=== PATIENT | female | born 1965 | race Caucasian/White ===

== ENCOUNTER 2016-05-29 22:07 | Emergency (ER) ==
[2016-05-29 22:26] VITALS: BMI 20.5
[2016-05-29] MEDS ORDERED: PHENERGAN 25 MG/ML VIAL IM STA (22:43)
[2016-05-29] MEDS ORDERED: STADOL IM STA (22:43)
[2016-05-29 23:43] VITALS: BP 115/74; TEMP 98
--- NOTE | 2016-05-29 23:53 | ED.PDOC ---
General ED Provider: Dr. IGNACIO NIETO Chief Complaint: Headache Stated Complaint: Left sided Headache Time Seen by Physician: 22:15 Mode of Arrival: Walk-In Information Source: Patient Exam Limitations: No limitations Primary Care Provider: DINAH TORO Nursing and Triage Documentation Reviewed and Agree: Yes Neurological Complaint Exam - Headache Complaint/Exam Onset: Sudden Duration: constant Symptoms Are: Still present Timing: Constant Worst Headache Ever: No Initial Severity: Severe Current Severity: Severe Location: Left, Frontal, Temporal, Parietal Character: Reports: Typical headache, Migraine Alleviating: Reports: None Associated Signs and Symptoms: Reports: Nausea. Denies: Dizziness, Seizure, Vomiting, Sinus pressure, Fever, Neck pain, Neck stiffness, Decreased LOC, Visual changes Related History: Reports: Similar episode Related Surgical History: Reports: None SAH Risk Factors: Reports: None Meningitis Risk Factors: Reports: None SDH Risk Factors: Reports: None Temporal Arteritis Risk Factors: Reports: None Normal Head CT Within Last 12 Months: Yes Fundoscopic Exam: Present: Normal Findings Papilledema Present: No Temporal Artery Tenderness: Present: None Sinus Tenderness: Present: None TMJ Tenderness: Present: None Focal Weakness: Present: None Focal Sensory Loss: Present: None Gait: Normal Nystagmus Present: No Gag Reflex Present: No [id number]: Normal Findings Romberg Test Positive: No Babinski Sign: Negative Right, Negative Left Head Picture: 1 - headache Differential Diagnoses: Meningitis Review of Systems - Review Of Systems Constitutional: Reports: Loss of appetite Eyes: Reports: Photophobia Ears, Nose, Mouth, Throat: Reports: No symptoms Respiratory: Reports: No symptoms Cardiac: Reports: No symptoms GI: Reports: No symptoms : Reports: No symptoms Musculoskeletal: Reports: No symptoms Skin: Reports: No symptoms Neurological: Reports: Anxiety, Headache Endocrine: Reports: No symptoms Hematologic/Lymphatic: Reports: No symptoms All Other Systems: Reviewed and Negative Past Medical History - Past Medical History Previously Healthy: Yes Endocrine: Reports: None Cardiovascular: Reports: None Respiratory: Reports: None Hematological: Reports: None Gastrointestinal: Reports: None Genitourinary: Reports: None Neuro/Psych: Reports: None, Migraine Musculoskeletal: Reports: None Cancer: Reports: None Last Menstrual Period: 7-8 years ago. uterine ablation - Surgical History General Surgical History: Reports: None - Family History Family History: Reports: None - Social History Smoking Status: Never smoker Hx Substance Use: No Alcohol Screening: Occasionally - Immunizations Tetanus Shot up to Date: Yes Physical Exam - Physical Exam Appearance: Ill-appearing, Well-nourished Pain Distress: Severe Eyes: JOSE JUAN, EOMI, Conjunctiva clear ENT: Ears normal, Nose normal, Oropharynx normal Neck: Supple Respiratory: Airway patent, Breath sounds clear, Breath sounds equal, Respirations nonlabored Cardiovascular: RRR, Pulses normal, No rub, No murmur GI/: Soft, Nontender, No masses, Bowel sounds normal, No Organomegaly Musculoskeletal: Normal strength, ROM intact, No edema, No calf tenderness Skin: Warm, Dry, Normal color Neurological: Sensation intact, Motor intact, Reflexes intact, Cranial nerves intact, Alert, Oriented Psychiatric: Affect appropriate, Anxious Re-Evaluation - Re-Evaluation Time of Re-Evaluation: 23:52 Status: Improved Pain Level: 2 Appearance: NAD Critical Care Note - Critical Care Note Total Time (mins): 0 Course - Course Orders, Labs, Meds: Orders Category Date Time Status Butorphanol Tartrate [Stadol] MEDS 05/29/16 22:43 Discontinued 2 mg IM ONCE STA Promethazine HCl [Phenergan 25 mg/ml Vial] MEDS 05/29/16 22:43 Discontinued 25 mg IM ONCE STA Medications Discontinued Medications Generic Name Dose Route Start Last Admin Trade Name Freq PRN Reason Stop Dose Admin Butorphanol Tartrate 2 mg 05/29/16 22:43 05/29/16 23:00 Stadol IM 05/29/16 22:44 2 mg ONCE STA Administration Promethazine HCl 25 mg 05/29/16 22:43 05/29/16 23:00 Phenergan 25 Mg/Ml Vial IM 05/29/16 22:44 25 mg ONCE STA Administration Vital Signs: Temp Pulse Resp BP Pulse Ox 05/29/16 23:42 98 F 75 18 115/74 97 05/29/16 22:08 98.4 F 83 18 131/81 100 Departure - Departure Time of Disposition: 23:52 Disposition: HOME SELF-CARE Discharge Problem: Headache, Migraine syndrome Instructions: Migraine Headache (ED) Condition: Good Pt referred to PMD for follow-up: Yes Additional Instructions: Get your medications refilled. Follow up with PCP in 1-3 days Rest Push fluids. Allergies/Adverse Reactions: Allergies Penicillins Adverse Reaction (Verified 05/29/16 22:21) Sulfa (Sulfonamide Antibiotics) Adverse Reaction (Verified 05/29/16 22:21) Home Medications: Ambulatory Orders Etodolac [Lodine] 400 mg PO BID 06/02/13 Hydroxychloroquine Sulfate [Plaquenil] 200 mg PO BID 06/02/13 Multivitamin 1 cap PO DAILY 06/02/13 Promethazine HCl [Phenergan Tab] 25 mg PO DAILY PRN 06/02/13 Topiramate [Topamax] 250 mg PO BID 06/02/13 Trazodone HCl 100 mg PO BEDTIME 06/02/13 Pilocarpine HCl [Salagen] 10 mg PO BID 03/25/14 Alprazolam [Xanax Xr] 1 mg PO BID 06/26/14 Butalb/Acetaminophen/Caffeine [Fioricet] 1 each PO TID PRN #20 tablet 12/05/15 Clomipramine HCl [Anafranil] 100 mg PO BEDTIME 05/29/16 Onabotulinumtoxina [Botox] 100 unit IJ 05/29/16 Disposition Discussed With: Patient, Family
== END 2016-05-29 23:55 | disposition home or self-care (01) ==
LOC: ED 22:07
DX: G43.909 Migraine, unspecified, not intractable, without status migrainosus (principal)
CPT/HCPCS: 96372; 99283

== ENCOUNTER 2016-06-24 15:27 | Outpatient (CLI) | payer OTHER ==
[2016-06-24 15:51] LABS: HEMATOCRIT 36.7 % (37.0-47.0); HEMOGLOBIN 12.6 g/dl (12.0-16.0); MEAN CORPUSCULAR HEMOGLOBIN 31.4 pg (27.0-31.0); MEAN CORPUSCULAR HGB CONC 34.3 (31.8-35.4); MEAN CORPUSCULAR VOLUME 91.5 fl (81.0-99.0); PLATELET COUNT 258 10^3/uL (140-440); RED BLOOD COUNT 4.01 10^6/ul (4.20-5.40); WHITE BLOOD COUNT 7.51 K/ul (4.6-10.2)
[2016-06-24 16:03] LABS: ALBUMIN/GLOBULIN RATIO 1.18; BILIRUBIN,TOTAL 0.35 mg/dL (0.00-1.20); BUN/CREATININE RATIO 21.05; CALCIUM 9.3 mg/dL (8.2-10.2); CREATININE 0.95 mg/dL (0.60-1.30); TOTAL PROTEIN 7.4 g/dL (6.4-8.2)
[2016-06-25 08:52] LABS: ERYTHROCYTE SEDIMENTATION RATE 8 mm/hr (0-20); ESR INTERNAL QC INTERNAL QC VALID
[2016-06-27 13:12] LABS: A/G RATIO 1.3 (0.7-1.7); ALPHA-1 GLOBULIN 0.2 g/dL (0.0-0.4); ALPHA-2 GLOBULIN 0.7 g/dL (0.4-1.0); BETA GLOBULIN 0.9 g/dL (0.7-1.3); GAMMA GLOBULIN 1.3 g/dL (0.4-1.8); TOTAL GLOBULINS 3.2 g/dL (2.2-3.9)
[2016-06-28 16:27] LABS: ANTI-DNA (DS) AB QN 2 IU/mL (0-9); IMMUNOGLOBULIN M, QN, SERUM 125 mg/dL (26-217)
[2016-06-29 07:58] LABS: COMPLEMENT C3 122; COMPLEMENT C4 19
[2016-06-29 07:59] LABS: C-REACTIVE PROTEIN 1.1
== END 2016-06-24 15:28 | disposition home or self-care (01) ==
LOC: LAB 15:27
PROVIDERS: ATTEND Internal Medicine Rheumatology
DX: M35.09 Sjogren syndrome with other organ involvement (principal)
CPT/HCPCS: 36415; 80053; 84165; 85027; 85651; 86038; 86140; 86160; 86320; 86430

== ENCOUNTER 2016-07-22 09:31 | Outpatient (CLI) ==
[2016-07-22 19:05] LABS: FLU INTERNAL QC INTERNAL QC VALID; RAPID FLU A NEGATIVE (NEGATIVE); RAPID FLU B NEGATIVE (NEGATIVE)
== END 2016-07-22 09:32 | disposition home or self-care (01) ==
LOC: LAB 09:31
PROVIDERS: ATTEND Nurse Practitioner Family
DX: J02.9 Acute pharyngitis, unspecified (principal); R50.9 Fever, unspecified
CPT/HCPCS: 87804; 87880

== ENCOUNTER 2016-07-26 10:33 | Outpatient (CLI) ==
--- NOTE | 2016-07-26 11:26 | DI ---
EXAM: Two views of the chest. History: Cough. Comparison: Chest radiograph 03/25/2014 Findings: Heart size is normal. No focal consolidation. No appreciable pleural fluid and no pneum othorax. No acute osseous abnormalities. Impression: No acute cardiopulmonary process.
== END 2016-07-26 10:34 | disposition home or self-care (01) ==
LOC: RAD 10:33
PROVIDERS: ATTEND Nurse Practitioner Family
DX: R05 Cough (principal); J98.8 Other specified respiratory disorders

== ENCOUNTER 2016-12-18 20:32 | Emergency (ER) ==
[2016-12-18 20:32] VITALS: BMI 20.5
[2016-12-18 20:38] VITALS: BP 110/80; TEMP 98.5
[2016-12-18] MEDS ORDERED: TORADOL IM STA (20:41)
[2016-12-18] MEDS ORDERED: PHENERGAN 25 MG/ML VIAL IM STA (20:41)
[2016-12-18] MEDS ORDERED: DILAUDID 2 MG/ML SYRINGE IM STA (20:41)
--- NOTE | 2016-12-18 20:44 | ED.PDOC ---
General ED Provider: Dr. LUISA VANG-ER Chief Complaint: Headache Stated Complaint: kimberly got a migraine--its like the usual ones i have Time Seen by Physician: 20:40 Mode of Arrival: Walk-In Information Source: Patient, Family Exam Limitations: No limitations Primary Care Provider: LOBO LOZOYA Nursing and Triage Documentation Reviewed and Agree: Yes Neurological Complaint Exam - Headache Complaint/Exam Onset: Gradual Duration: several hours Symptoms Are: Still present Timing: Constant Episodes Lasting: Hours Worst Headache Ever: No Initial Severity: Mild Current Severity: Moderate Location: Diffuse Character: Reports: Dull, Throbbing, Pressure, Typical headache, Migraine Aggravating: Reports: Bright lights Alleviating: Reports: None Associated Signs and Symptoms: Reports: Nausea, Vomiting. Denies: Dizziness, Seizure, Sinus pressure, Fever, Neck pain, Neck stiffness, Decreased LOC, Visual changes Related History: Reports: Similar episode Related Surgical History: Reports: None SAH Risk Factors: Reports: None Meningitis Risk Factors: Reports: None Temporal Arteritis Risk Factors: Reports: Female, Normal Head CT Within Last 12 Months: Yes Fundoscopic Exam: Present: Normal Findings Papilledema Present: No Temporal Artery Tenderness: Present: None Sinus Tenderness: Present: None TMJ Tenderness: Present: None Glascow Coma Scale (see protocol): 15 Meningeal Signs Positive: No Pain on Passive Flexion-Positive Kernig's: No ROM Limited In: No Limitiations Focal Weakness: Present: None Focal Sensory Loss: Present: None Gait: Normal Nystagmus Present: No Babinski Sign: Negative Right, Negative Left Differential Diagnoses: Migraine Review of Systems - Review Of Systems Constitutional: Reports: No symptoms Eyes: Reports: No symptoms Ears, Nose, Mouth, Throat: Reports: No symptoms Respiratory: Reports: No symptoms Cardiac: Reports: No symptoms GI: Reports: Nausea : Reports: No symptoms Musculoskeletal: Reports: No symptoms Skin: Reports: No symptoms Neurological: Reports: Headache Endocrine: Reports: No symptoms Hematologic/Lymphatic: Reports: No symptoms All Other Systems: Reviewed and Negative Past Medical History - Past Medical History Previously Healthy: Yes Endocrine: Reports: None Cardiovascular: Reports: None Respiratory: Reports: None Hematological: Reports: None Gastrointestinal: Reports: None Genitourinary: Reports: None Neuro/Psych: Reports: None, Migraine Musculoskeletal: Reports: None Cancer: Reports: None Last Menstrual Period: ABLASION - Surgical History General Surgical History: Reports: None - Family History Family History: Reports: None - Social History Smoking Status: Never smoker Hx Substance Use: No Alcohol Screening: Occasionally Lives: With family Physical Exam - Physical Exam Appearance: Well-appearing, No pain distress, Well-nourished Pain Distress: Moderate Eyes: JOSE JUAN, EOMI, Conjunctiva clear ENT: Ears normal, Nose normal, Oropharynx normal Neck: Supple Respiratory: Airway patent Cardiovascular: RRR, Pulses normal, No rub, No murmur GI/: Soft, Nontender, No masses, Bowel sounds normal, No Organomegaly Musculoskeletal: Normal strength, ROM intact, No edema, No calf tenderness Skin: Warm, Dry, Normal color Neurological: Sensation intact, Motor intact, Reflexes intact, Cranial nerves intact, Alert, Oriented Psychiatric: Affect appropriate, Mood appropriate Re-Evaluation - Re-Evaluation Time of Re-Evaluation: 21:15 Status: Improved Vital Signs Stable: Yes Pain Level: 2 Appearance: NAD Lungs: Clear Skin: Warm and Dry Neuro: Alert and Oriented X3 CV: RRR Critical Care Note - Critical Care Note Total Time (mins): 0 Course - Course Orders, Labs, Meds: Orders Category Date Time Status Hydromorphone HCl/Pf [Dilaudid 2 mg/ml Syringe] MEDS 12/18/16 20:41 Stat 2 mg IM ONCE STA Ketorolac Tromethamine [Toradol] MEDS 12/18/16 20:41 Stat 60 mg IM ONCE STA Promethazine HCl [Phenergan 25 mg/ml Vial] MEDS 12/18/16 20:41 Stat 25 mg IM ONCE STA Medications Discontinued Medications Generic Name Dose Route Start Last Admin Trade Name Carol PRN Reason Stop Dose Admin Hydromorphone HCl 2 mg 12/18/16 20:41 Dilaudid 2 Mg/Ml Syringe IM 12/18/16 20:42 ONCE STA Ketorolac Tromethamine 60 mg 12/18/16 20:41 Toradol IM 12/18/16 20:42 ONCE STA Promethazine HCl 25 mg 12/18/16 20:41 Phenergan 25 Mg/Ml Vial IM 12/18/16 20:42 ONCE STA Vital Signs: Temp Pulse Resp BP Pulse Ox 12/18/16 20:33 98.5 F 89 18 110/80 98 Departure - Departure Time of Disposition: 20:45 Disposition: HOME SELF-CARE Discharge Problem: Migraine headache Qualifiers: Migraine type: unspecified Status migrainosus presence: without status migrainosus Intractability: not intractable Qualifier Code: (G43.909) Migraine, unspecified, not intractable, without status migrainosus Instructions: Migraine Headache (ED) Condition: Good Pt referred to PMD for follow-up: Yes Additional Instructions: f/u with pcp Allergies/Adverse Reactions: Allergies Penicillins Adverse Reaction (Verified 12/18/16 20:38) Sulfa (Sulfonamide Antibiotics) Adverse Reaction (Verified 12/18/16 20:38) Home Medications: Ambulatory Orders Etodolac [Lodine] 400 mg PO BID 06/02/13 Hydroxychloroquine Sulfate [Plaquenil] 200 mg PO BID 06/02/13 Multivitamin 1 cap PO DAILY 06/02/13 Promethazine HCl [Phenergan Tab] 25 mg PO DAILY PRN 06/02/13 Topiramate [Topamax] 250 mg PO BID 06/02/13 Trazodone HCl 100 mg PO BEDTIME 06/02/13 Pilocarpine HCl [Salagen] 10 mg PO BID 03/25/14 Alprazolam [Xanax Xr] 1 mg PO BID 06/26/14 Butalb/Acetaminophen/Caffeine [Fioricet] 1 each PO TID PRN #20 tablet 12/05/15 Clomipramine HCl [Anafranil] 100 mg PO BEDTIME 05/29/16 Disposition Discussed With: Patient, Family
[2016-12-18] MEDS ORDERED: DILAUDID 1 MG/ML SYRINGE IM STA (21:46)
== END 2016-12-18 22:15 | disposition home or self-care (01) ==
LOC: ED 20:32
DX: G43.909 Migraine, unspecified, not intractable, without status migrainosus (principal)
CPT/HCPCS: 96372; 99284

== ENCOUNTER 2017-01-23 16:01 | Outpatient (CLI) ==
--- NOTE | 2017-01-25 08:46 | MAMMO ---
EXAM: Bilateral digital screening mammogram History: Screening Comparison: Bilateral mammogram 11/09/2015 Findings: MLO and CC views of bilateral breasts demonstrate heterogeneously dense breast parenchyma . Stable benign bilateral breast calcifications. There are no dominant masses, no suspicious micro calcifications and no architectural distortions Impression: Benign stable mammogram. Recommend followup routine screening mammography in 1 year. BIRADS 2
== END 2017-01-23 16:02 | disposition home or self-care (01) ==
LOC: RAD 16:01
PROVIDERS: ATTEND Nurse Practitioner Family
DX: Z12.31 Encounter for screening mammogram for malignant neoplasm of breast (principal)
CPT/HCPCS: 77067

== ENCOUNTER 2017-07-03 17:41 | Emergency (ER) ==
[2017-07-03 17:49] VITALS: BP 129/85; TEMP 98.8; BMI 20.2
[2017-07-03] MEDS ORDERED: DILAUDID 1 MG/ML SYRINGE IM STA (17:55)
[2017-07-03] MEDS ORDERED: ZOFRAN 4 MG/2 ML IM STA (17:56)
--- NOTE | 2017-07-03 18:02 | ED.PDOC ---
General ED Provider: Dr. MARILY MORFIN Chief Complaint: Headache Stated Complaint: HEADACHE Time Seen by Physician: 18:00 (SEEN WITH SLAVA ) Mode of Arrival: Walk-In Information Source: Patient Exam Limitations: No limitations Primary Care Provider: LOBO LOZOYA Nursing and Triage Documentation Reviewed and Agree: Yes Reviewed sepsis parameters & appropriate labs ordered?: Yes System Inflammatory Response Syndrome: Not Applicable Sepsis Protocol: For patient's 13 years and over: Temp is 96.8 and below OR 101 and greater Pulse >90 BPM Resp >20/minute Acutely Altered Mental Status Are patient's symptoms suggestive of a new infection, such as: -Pneumonia -Skin, Soft Tissue -Endocarditis -UTI -Bone, Joint Infection -Implantable Device -Acute Abdominal Infection -Wound Infection -Meningitis -Blood Stream Catheter Infection -Unknown System Inflammatory Response Syndrome: Not Applicable Neurological Complaint Exam - Headache Complaint/Exam Onset: Gradual Duration: CHRONIC WORSE SINCE THIS AM Symptoms Are: Still present Timing: Constant Episodes Lasting: Hours Worst Headache Ever: No Initial Severity: Moderate Current Severity: Moderate Location: Frontal, Temporal Character: Reports: Throbbing Aggravating: Reports: None Alleviating: Reports: None Associated Signs and Symptoms: Denies: Dizziness, Seizure, Nausea, Vomiting, Sinus pressure, Fever, Neck pain, Neck stiffness, Decreased LOC, Visual changes Related History: Reports: Similar episode Related Surgical History: Reports: None SAH Risk Factors: Reports: None Meningitis Risk Factors: Reports: None SDH Risk Factors: Reports: None Temporal Arteritis Risk Factors: Reports: Female, Normal Head CT Within Last 12 Months: Yes Fundoscopic Exam: Present: Normal Findings Papilledema Present: No Temporal Artery Tenderness: Present: None Sinus Tenderness: Present: None TMJ Tenderness: Present: None Glascow Coma Scale (see protocol): 15 Meningeal Signs Positive: No Pain on Passive Flexion-Positive Kernig's: No ROM Limited In: No Limitiations Focal Weakness: Present: None Focal Sensory Loss: Present: None Gait: Normal Nystagmus Present: No Gag Reflex Present: No Differential Diagnoses: Migraine Review of Systems - Review Of Systems Constitutional: Reports: No symptoms Eyes: Reports: No symptoms Ears, Nose, Mouth, Throat: Reports: No symptoms Respiratory: Reports: No symptoms Cardiac: Reports: No symptoms GI: Reports: No symptoms : Reports: No symptoms Musculoskeletal: Reports: No symptoms Skin: Reports: No symptoms Neurological: Reports: Headache Endocrine: Reports: No symptoms Hematologic/Lymphatic: Reports: No symptoms All Other Systems: Reviewed and Negative Past Medical History - Past Medical History Previously Healthy: Yes Endocrine: Reports: None Cardiovascular: Reports: None Respiratory: Reports: None Hematological: Reports: None Gastrointestinal: Reports: None Genitourinary: Reports: None Neuro/Psych: Reports: None, Migraine Musculoskeletal: Reports: None Cancer: Reports: None Last Menstrual Period: uterine ablation - Surgical History General Surgical History: Reports: None - Family History Family History: Reports: None - Social History Smoking Status: Never smoker Hx Substance Use: No Alcohol Screening: Occasionally Physical Exam - Physical Exam Appearance: Well-appearing, No pain distress, Well-nourished Eyes: JOSE JUAN, EOMI, Conjunctiva clear ENT: Ears normal, Nose normal, Oropharynx normal Respiratory: Airway patent, Breath sounds clear, Breath sounds equal, Respirations nonlabored Cardiovascular: RRR, Pulses normal, No rub, No murmur GI/: Soft, Nontender, No masses, Bowel sounds normal, No Organomegaly Musculoskeletal: Normal strength, ROM intact, No edema, No calf tenderness Skin: Warm, Dry, Normal color Neurological: Sensation intact, Motor intact, Reflexes intact, Cranial nerves intact, Alert, Oriented Psychiatric: Affect appropriate, Mood appropriate Critical Care Note - Critical Care Note Total Time (mins): 0 Course - Course Orders, Labs, Meds: Orders Category Date Time Status Hydromorphone HCl [Dilaudid 1 mg/ml Syringe] MEDS 07/03/17 17:55 Discontinued 1 mg IM ONCE STA Ondansetron HCl/Pf [Zofran 4 mg/2 ml] MEDS 07/03/17 17:56 Discontinued 4 mg IM ONCE STA Medications Discontinued Medications Generic Name Dose Route Start Last Admin Trade Name Freq PRN Reason Stop Dose Admin Hydromorphone HCl 1 mg 07/03/17 17:55 Dilaudid 1 Mg/Ml Syringe IM 07/03/17 17:56 ONCE STA Ondansetron HCl 4 mg 07/03/17 17:56 Zofran 4 Mg/2 Ml IM 07/03/17 17:57 ONCE STA Vital Signs: Temp Pulse Resp BP Pulse Ox 07/03/17 17:41 98.8 F 78 20 129/85 98 Departure - Departure Time of Disposition: 19:00 Disposition: HOME SELF-CARE Discharge Problem: Headache Instructions: Migraine Headache (ED) Condition: Good Pt referred to PMD for follow-up: Yes IPMP verified?: Yes Allergies/Adverse Reactions: Allergies Penicillins Adverse Reaction (Verified 07/03/17 17:50) Sulfa (Sulfonamide Antibiotics) Adverse Reaction (Verified 07/03/17 17:50) Home Medications: Ambulatory Orders Etodolac [Lodine] 400 mg PO BID 06/02/13 Hydroxychloroquine Sulfate [Plaquenil] 200 mg PO BID 06/02/13 Multivitamin 1 cap PO DAILY 06/02/13 Promethazine HCl [Phenergan Tab] 25 mg PO DAILY PRN 06/02/13 Topiramate [Topamax] 250 mg PO BID 06/02/13 Trazodone HCl 100 mg PO BEDTIME 06/02/13 Pilocarpine HCl [Salagen] 10 mg PO BID 03/25/14 Alprazolam [Xanax Xr] 1 mg PO BID 06/26/14 Butalb/Acetaminophen/Caffeine [Fioricet] 1 each PO TID PRN #20 tablet 12/05/15 Clomipramine HCl [Anafranil] 100 mg PO BEDTIME 05/29/16
== END 2017-07-03 18:45 | disposition home or self-care (01) ==
LOC: ED 17:41
DX: G43.909 Migraine, unspecified, not intractable, without status migrainosus (principal)
CPT/HCPCS: 96372; 99283

== ENCOUNTER 2017-09-05 12:10 | Outpatient (CLI) | END 2017-09-05 12:11 | disposition home or self-care (01) | LOC: LAB 12:10 | PROVIDERS: ATTEND Internal Medicine Rheumatology | DX: M35.09 Sjogren syndrome with other organ involvement (principal) | CPT/HCPCS: 36415; 80053; 85025; 85651 ==

== ENCOUNTER 2018-06-08 14:54 | Outpatient (CLI) | payer OTHER | END 2018-06-08 14:55 | disposition home or self-care (01) | LOC: LAB 14:54 | PROVIDERS: ATTEND Internal Medicine Rheumatology | DX: M35.09 Sjogren syndrome with other organ involvement (principal) | CPT/HCPCS: 36415; 80053; 85025; 85651 ==

== ENCOUNTER 2018-10-24 21:42 | Emergency (ER) | payer OTHER ==
[2018-10-24 21:54] VITALS: BP 111/73; TEMP 98.3; BMI 21.2
[2018-10-24] MEDS ORDERED: PHENERGAN 25 MG/ML VIAL IM STA (22:24)
[2018-10-24] MEDS ORDERED: STADOL IM STA (22:24)
[2018-10-24] MEDS ORDERED: DILAUDID 1 MG/ML SYRINGE IM STA (22:27)
--- NOTE | 2018-10-24 22:30 | ED.PDOC ---
General ED Provider: Dr. IGNACIO NIETO Chief Complaint: Headache Stated Complaint: 4 day history of Global migrane headaches not improved by home fioricet and stadol, associated with nausea and photophobia. Time Seen by Physician: 22:15 Mode of Arrival: Walk-In Information Source: Patient Exam Limitations: No limitations Primary Care Provider: ELSIE SERRANO Nursing and Triage Documentation Reviewed and Agree: Yes Does patient meet sepsis criteria?: No System Inflammatory Response Syndrome: Not Applicable Sepsis Protocol: For patient's 13 years and over: Temp is 96.8 and below OR 101 and greater Pulse >90 BPM Resp >20/minute Acutely Altered Mental Status Are patient's symptoms suggestive of a new infection, such as: -Pneumonia -Skin, Soft Tissue -Endocarditis -UTI -Bone, Joint Infection -Implantable Device -Acute Abdominal Infection -Wound Infection -Meningitis -Blood Stream Catheter Infection -Unknown Neurological Complaint Exam - Headache Complaint/Exam Onset: Gradual Duration: 4 days Symptoms Are: Still present Timing: Constant Worst Headache Ever: No Initial Severity: Moderate Current Severity: Severe Location: Right, Left, Frontal, Temporal, Parietal Character: Reports: Throbbing Alleviating: Reports: None Associated Signs and Symptoms: Reports: Nausea. Denies: Seizure, Neck pain, Neck stiffness, Decreased LOC, Visual changes Related History: Reports: Similar episode Related Surgical History: Reports: None SAH Risk Factors: Reports: None Meningitis Risk Factors: Reports: None SDH Risk Factors: Reports: None Temporal Arteritis Risk Factors: Reports: Female, . Denies: Over 60 years old, Polymyalgia Rheumatica Temporal Artery Tenderness: Present: None Sinus Tenderness: Present: None TMJ Tenderness: Present: None Glascow Coma Scale (see protocol): 15 Meningeal Signs Positive: No Pain on Passive Flexion-Positive Kernig's: No ROM Limited In: No Limitiations Focal Weakness: Present: None Focal Sensory Loss: Present: None Gait: Normal Nystagmus Present: No Gag Reflex Present: No [id number]: Abnormal right Romberg Test Positive: No Babinski Sign: Negative Right, Negative Left Differential Diagnoses: Migraine, Sinus Headache, Tension Headache Review of Systems - Review Of Systems Constitutional: Reports: Loss of appetite Eyes: Reports: Photophobia Ears, Nose, Mouth, Throat: Reports: No symptoms Respiratory: Reports: No symptoms Cardiac: Reports: No symptoms GI: Reports: Nausea : Reports: No symptoms Musculoskeletal: Reports: No symptoms Skin: Reports: No symptoms Neurological: Reports: Anxiety, Headache Endocrine: Reports: No symptoms Hematologic/Lymphatic: Reports: No symptoms All Other Systems: Reviewed and Negative Past Medical History - Past Medical History Previously Healthy: Yes Endocrine: Reports: None Cardiovascular: Reports: None Respiratory: Reports: None Hematological: Reports: None Gastrointestinal: Reports: None Genitourinary: Reports: None Neuro/Psych: Reports: Migraine, Anxiety, Depression, Bipolar Disorder Musculoskeletal: Reports: None Cancer: Reports: None Last Menstrual Period: UNKNOWN Other Pertinent Past Medical History: Sjogren's syndrome - Surgical History General Surgical History: Reports: Orthopedic (fx left leg repair above the ankle), Other (uterine ablation) - Family History Family History: Reports: None - Social History Smoking Status: Never smoker Hx Substance Use: No Alcohol Screening: Occasionally - Immunizations Tetanus Shot up to Date: Yes Physical Exam - Physical Exam Appearance: Thin Ill-appearing: Moderate Pain Distress: Severe Eyes: JOSE JUAN, EOMI, Conjunctiva clear ENT: Ears normal, Nose normal, Oropharynx normal Respiratory: Airway patent, Breath sounds clear, Breath sounds equal, Respirations nonlabored Cardiovascular: RRR, Pulses normal, No rub, No murmur GI/: Soft, Nontender, No masses, Bowel sounds normal, No Organomegaly Musculoskeletal: Normal strength, ROM intact, No edema, No calf tenderness Skin: Warm, Dry, Normal color Neurological: Sensation intact, Motor intact, Reflexes intact, Cranial nerves intact, Alert, Oriented Psychiatric: Affect appropriate, Mood appropriate Re-Evaluation - Re-Evaluation Time of Re-Evaluation: 23:35 Status: Improved Pain Level: better Appearance: NAD Critical Care Note - Critical Care Note Total Time (mins): 0 Course - Course Orders, Labs, Meds: Orders Category Date Time Status Hydromorphone HCl [Dilaudid 1 mg/ml Syringe] MEDS 10/24/18 22:27 Discontinued 1.5 mg IM ONCE STA Ketorolac Tromethamine [Toradol] MEDS 10/24/18 23:14 Discontinued 60 mg IM ONCE STA Promethazine HCl [Phenergan 25 mg/ml Vial] MEDS 10/24/18 22:24 Discontinued 25 mg IM ONCE STA Medications Discontinued Medications Generic Name Dose Route Start Last Admin Trade Name Freq PRN Reason Stop Dose Admin Hydromorphone HCl 1.5 mg 10/24/18 22:27 10/24/18 22:41 Dilaudid 1 Mg/Ml Syringe IM 10/24/18 22:28 1.5 mg ONCE STA Administration Ketorolac Tromethamine 60 mg 10/24/18 23:14 10/24/18 23:20 Toradol IM 10/24/18 23:15 60 mg ONCE STA Administration Promethazine HCl 25 mg 10/24/18 22:24 10/24/18 22:41 Phenergan 25 Mg/Ml Vial IM 10/24/18 22:25 25 mg ONCE STA Administration Vital Signs: Temp Pulse Resp BP Pulse Ox 10/24/18 21:43 98.3 F 77 18 111/73 99 Departure - Departure Time of Disposition: 23:40 Disposition: HOME SELF-CARE Discharge Problem: Headache Instructions: Migraine Headache (ED) Condition: Stable Pt referred to PMD for follow-up: Yes IPMP verified?: No Additional Instructions: continue home medications Follow up with PCP in 3 -5 days Allergies/Adverse Reactions: Allergies Penicillins Adverse Reaction (Verified 10/24/18 21:54) Hives Sulfa (Sulfonamide Antibiotics) Adverse Reaction (Verified 10/24/18 21:54) Hives Home Medications: Ambulatory Orders Etodolac [Lodine] 400 mg PO DAILY 06/02/13 Hydroxychloroquine Sulfate [Plaquenil] 200 mg PO BID 06/02/13 Multivitamin 1 cap PO DAILY 06/02/13 Promethazine HCl [Phenergan Tab] 25 mg PO DAILY PRN 06/02/13 Trazodone HCl 100 mg PO BEDTIME 06/02/13 Pilocarpine HCl [Salagen] 10 mg PO BID 03/25/14 Alprazolam [Xanax Xr] 1 mg PO BID 06/26/14 Butalb/Acetaminophen/Caffeine [Fioricet] 1 each PO TID PRN #20 tablet 12/05/15 Clomipramine HCl [Anafranil] 200 mg PO BEDTIME 05/29/16 Dronabinol [Marinol] 10 mg PO QID 09/22/17 Topiramate 200 mg PO BID 09/12/18 Disposition Discussed With: Patient, Family
[2018-10-24] MEDS ORDERED: TORADOL IM STA (23:14)
== END 2018-10-24 23:44 | disposition home or self-care (01) ==
LOC: ED 21:42
DX: G43.909 Migraine, unspecified, not intractable, without status migrainosus (principal)
CPT/HCPCS: 96372; 99283